=== PATIENT | female | born 1935 | race Caucasian/White ===

== ENCOUNTER 2021-04-23 13:01 | Emergency (ER) | payer OTHER ==
[~2021-04-23] VITALS: Ht 162.6 cm; Wt 71.7 kg
[2021-04-23] MEDS ORDERED: CLINDAMYCIN PHOS 600 MG/ 4 ML VIAL IM ONE (13:15)
[2021-04-23] MEDS ORDERED: CLEOCIN HCL300 MG PO (13:16)
[2021-04-23] MEDS ORDERED: PROBIOTIC & AC1 EACH PO (13:16)
[2021-04-23] MEDS ORDERED: DOXYCYCLINE HY100 MG PO (13:16)
[2021-04-23] MEDS ORDERED: CLINDAMYCIN PHOS 600 MG/ 4 ML VIAL ONE (13:35)
== END 2021-04-23 13:53 | disposition home or self-care (01) ==
LOC: FSED 13:22
DX: T82.7XXA Infection and inflammatory reaction due to other cardiac and vascular devices, implants and grafts, initial encounter (principal); Z95.810 Presence of automatic (implantable) cardiac defibrillator; I10 Essential (primary) hypertension
CPT/HCPCS: 96372; 99282